=== PATIENT | female | born 1985 | race American Indian/Alaskan Native ===

== ENCOUNTER 2020-02-13 15:12 | Emergency (ER) | payer MEDICAID, SELFPAY ==
[2020-02-13] VITALS (8 sets, daily range): BP systolic 94–106; BP diastolic 61–72; PULSE 68–84; RESP 14; TEMP 36.9; O2SAT 96–100
--- NOTE | 2020-02-13 15:18 | ED.GENADULT ---
HPI - General Adult General Chief complaint: Toxicology Problem Stated complaint: Heroin Time Seen by Provider: 02/13/20 15:13 Source: patient Mode of arrival: EMS Limitations: no limitations History of Present Illness HPI narrative: 34-year-old female who admits to being an IV heroin abuser brought in by EMS for evaluation after approximately 1 hour ago she injected heroin and then also swallowed heroin. No respiratory depression. Was brought in by EMS. Did not receive any Narcan prior to arrival. Patient states she feels fine. Has no complaints. Denies any other toxic ingestions. Review of Systems Constitutional Constitutional: Denies fever(s) and Denies headache(s) ENT Ears, Nose, Mouth, and Throat: Denies headache(s) Cardiovascular Cardiovascular: Denies chest pain and Denies dyspnea Respiratory Respiratory: Denies dyspnea Gastrointestinal Gastrointestinal: Denies abdominal pain, Denies nausea and Denies vomiting Integumentary/Breasts Skin/Breast: Denies rash Neurologic Neurologic: Denies behavioral changes and Denies headache(s) Psychiatric Psychiatric: Denies behavioral changes Hematologic/Lymphatic Hematologic/Lymphatic: Denies easy bleeding and Denies easy bruising Patient History Medical History Heroin abuse (Acute) Substance Use Type: heroin Exam Initial Vital Signs Initial Vital Signs: Vital Signs Temperature 98.4 F 02/13/20 15:15 Pulse Rate 84 02/13/20 15:15 Respiratory Rate 14 02/13/20 15:15 Blood Pressure 106/72 02/13/20 15:15 Pulse Oximetry 96 02/13/20 15:15 Const General: cooperative, comfortable and well developed Limitations: mental status not altered [facility] Head: normal to inspection and normocephalic Resp Effort & Inspection: normal respiratory effort Auscultation: clear to auscultation bilaterally Cardio Rate: regular rate Rhythm: regular rhythm Skin Lesions: no lesions Rashes: no rashes Neuro General: patient alert, patient awake and patient oriented x3 Cognition: normal cognition Speech: speech normal Extrem General: normal to inspection and capillary refill normal Psych Appearance: grossly normal and well kempt Scores GCS Leoncio coma scale eye opening: Spontaneous Leoncio coma scale verbal response: Orientated Leoncio coma scale motor response: Obey commands [place] coma scale total score: 15 Course Vital Signs Vital signs: Vital Signs - 8 hr 02/13/20 15:15 02/13/20 16:13 02/13/20 16:30 Temperature 98.4 F Pulse Rate 84 68 70 Respiratory Rate 14 Blood Pressure 106/72 Pulse Oximetry 96 100 100 02/13/20 16:41 02/13/20 17:00 02/13/20 17:30 Temperature Pulse Rate 70 72 72 Respiratory Rate Blood Pressure 100/66 94/61 99/64 Pulse Oximetry 99 98 97 02/13/20 18:00 02/13/20 18:30 Temperature Pulse Rate 69 71 Respiratory Rate Blood Pressure 99/64 95/64 Pulse Oximetry 99 97 Medical Decision Making MDM Narrative Medical decision making narrative: Patient is observed here in the emergency department for almost 4 hours without any respiratory depression. She denies any other toxic ingestions except for the heroin. She was easily arousable. Is alert oriented x3. Ambulated. Talked on the phone. No one was able to come and pick her up. Patient states that she would like to be discharged. She was clinically sober appears alert oriented x3. GCS of 15 in my opinion a capacity to make decisions. Will discharge home. Discharge Plan Departure Patient Disposition: Home Clinical Impression: Heroin abuse Instructions: DI for Substance Use Disorder Activity Restrictions/Additional Instructions: No driving for the next 24 hours or in the future if you partake in intoxicating substances. Contact her primary provider for follow-up. Return to the emergency department for any new or worsening symptoms
--- NOTE | 2020-02-13 19:18 | PC.NURSE ---
pt attempted to call family but unable to get a ride home. providing cab voucher. pt steady has steady gait, clear airway. a & o x3.
== END 2020-02-13 19:30 | disposition home or self-care (01) ==
PROVIDERS: Emergency Provider Emergency Medicine
DX: F11.10 Opioid abuse, uncomplicated (principal)
CPT/HCPCS: 99281; 99283